=== PATIENT | female | born 1960 | race Two or more races ===

== ENCOUNTER 2016-05-31 09:56 | Day surgery (SDC) | payer OTHER ==
[2016-05-30 19:09] VITALS: BMI 25.1
--- NOTE | 2016-05-31 06:21 | HP ---
History & Physical Update - History History: No Change - Physical Physical: No Change - Assessment Assessment: No Change - Plan Plan: No Change
[~2016-05-31 09:56] MED LIST: LIDOCAINE 1%/EPI 1:100000 (50 ML MULTI DOSE VIAL) INF ONE; TETRACAINE 0.5% OPHTH SOLN 2 ML BOTTLE TP ONE; TOBRAMYCIN/DEXAMETHASONE OPHTH. OINTMENT 1 TUBE TP ONE
[2016-05-31 10:10] VITALS: TEMP 97.4
[2016-05-31] MEDS ORDERED: LIDOCAINE 1%/EPI 1:100000 (50 ML MULTI DOSE VIAL) ONE (10:36)
[2016-05-31] MEDS ORDERED: TETRACAINE 0.5% OPHTH SOLN 2 ML BOTTLE TP ONE (10:42)
[2016-05-31] MEDS ORDERED: MIDAZOLAM HCL 2 MG/2 ML SINGLE DOSE VIAL ONE (10:45)
[2016-05-31] MEDS ORDERED: LIDOCAINE 1%/EPI 1:100000 (50 ML MULTI DOSE VIAL) INF ONE (10:54)
[2016-05-31] MEDS ORDERED: TETRACAINE 0.5% OPHTH SOLN 2 ML BOTTLE ONE (10:56)
[2016-05-31] MEDS ORDERED: TOBRAMYCIN/DEXAMETHASONE OPHTH. OINTMENT 1 TUBE TP ONE (11:09)
[2016-05-31] MEDS ORDERED: ACETAMINOPHEN 325 MG TABLET (FP) ONE (12:32)
[2016-05-31] MEDS ORDERED: ACETAMINOPHEN 325 MG TABLET (FP) PO PRN (12:41)
[2016-05-31 12:59] VITALS: BP 112/64; PULSE 84
--- NOTE | 2016-06-01 08:23 | OP ---
DATE OF OPERATION: 05/31/2016 SURGEON: Arsenio Montez MD PREOPERATIVE DIAGNOSIS: Pterygium, right eye. OPERATION: Pterygium excision with conjunctival autograft, right eye. POSTOPERATIVE DIAGNOSIS: Pterygium, right eye. ANESTHESIA: Topical. COMPLICATIONS: None. BLOOD LOSS: None. SPECIMEN: None. BRIEF HISTORY: The patient is a 55-year-old woman with a past medical history of diabetes who presented with a pterygium in the right eye that was causing her significant discomfort despite medical treatment. After the risks, benefits, and alternatives to pterygium excision were discussed with the patient including the risk of recurrence, the patient consented to surgery. DESCRIPTION OF PROCEDURE: The patient was brought to the operating room and prepped and draped in the usual sterile fashion. An eyelid speculum was placed in the right eye. Lidocaine 1% with epinephrine was injected under the pterygium and superotemporally from where the conjunctival autograft would be removed. Pterygium was peeled off the cornea and excised at the base with Rashard scissors. Sclera then was cauterized, and the cornea was polished with a khoa yan. Appropriately sized conjunctival autograft was removed from the superotemporal conjunctiva and adhered to the scleral bed using Tisseel sealant. The eyelid speculum was then removed from the eye, and TobraDex ointment and a patch were placed over the right eye. The patient was transferred to the recovery room in stable condition and will follow up tomorrow. ARSENIO MONTEZ M.D. [id number] MTDD
--- NOTE | 2016-06-01 15:08 | PATH ---
Surgical Pathology Report Patient Name: MARGARITA GTZ [facility]. Rec. #: [id number] /Age/Gender: 1960 (Age: 55) / F Account: [id number] Location: [facility] SURGICAL Taken: 05/31/2016 Received: 05/31/2016 Reported: 06/01/2016 Physicians: Sung Felder M.D. Specimen(s) Received PTERYGIUM Clinical History Pterygium right eye Final Diagnosis CONJUNCTIVA, RIGHT EYE, PTERIGIUM, EXCISION: CONJUNCTIVA WITH FOCAL ELASTIC DEGENERATION, FIBROSIS AND NEOVASCULARIZATION CONSISTENT WITH PTERIGIUM. Electronically Signed Michael Hendricks M.D. Gross Description Received in formalin, labeled "pterygium" is a mackey, irregular portion of soft tissue measuring 0.2 cm in greatest dimension. The specimen is submitted in toto in one cassette. /05/31/201605/31/2016
== END 2016-05-31 14:14 | disposition home or self-care (01) ==
LOC: JASU-SURG 09:56
PROVIDERS: ATTEND Ophthalmology
PROC: 08U007Z Supplement of Right Eye with Autologous Tissue Substitute, Open Approach (ICD-10-PCS; principal; 2016-05-31 11:00)
DX: H11.001 Unspecified pterygium of right eye (principal)
CPT/HCPCS: 88304-TC

== ENCOUNTER 2020-12-15 20:04 | Observation (INO) | payer OTHER ==
[2020-12-15 20:12] VITALS: BMI 23.0
[2020-12-15] MEDS ORDERED: ASPIRIN 325 MG TABLET PO ONE (21:16)
[2020-12-15 21:26] LABS: CHLORIDE 104 mmol/L (98-107); SODIUM 137 mmol/L (136-145)
[2020-12-15 21:29] LABS: CALCIUM 8.9 mg/dL (8.5-10.1); INR 0.91 (0.83-1.09); PROTHROMBIN TIME (PATIENT) 11.2 SEC (9.7-13.0)
[2020-12-15 21:29] LABS: EPI CELLS 2 /uL (0-25.1); HYALINE CASTS 0 /uL (0-3.1); PH,URINE 6.5 (5.0-8.0); URINE APPEARANCE CLEAR; URINE BACTERIA 28 /uL (0-1359); URINE BILIRUBIN NEGATIVE (NEGATIVE); URINE COLOR YELLOW; URINE GLUCOSE (UA) NEGATIVE (NEGATIVE); URINE KETONE NEGATIVE (NEGATIVE); URINE LEUK ESTERASE TRACE (NEGATIVE); URINE NITRITE NEGATIVE (NEGATIVE); URINE PROTEIN 1+ (NEGATIVE); URINE RBC 126 /uL (0-23.9); URINE UROBILINOGEN 0.2 mg/dL (0.2-1.0); URINE WBC 15 /uL (0-25.8)
[2020-12-15 21:30] LABS: ALBUMIN 3.8 g/dl (3.4-5.0); ANION GAP 5 MMOL/L (8-16); CO2 28 mmol/L (21-32); GLUCOSE,RANDOM 191 mg/dL (74-106)
[2020-12-15 21:31] LABS: BASO % 1.2 % (0-2.0); HEMATOCRIT 37.7 % (32.4-45.2); HEMOGLOBIN 12.6 GM/dL (10.7-15.3); LYMPH % 36.2 % (8-40); MCH 29.9 pg (25.7-33.7); MCHC 33.4 g/dl (32.0-36.0); MEAN CELL VOLUME 89.4 fl (80-96); MEAN PLT VOLUME 7.3 fl (7.5-11.1); MONO % 7.4 % (3.8-10.2); NEUT % 47.2 % (42.8-82.8); PLATELET COUNT 322 10^3/uL (134-434); RBC 4.22 M/mm3 (3.60-5.2); RDW 13.4 % (11.6-15.6)
[2020-12-15 21:32] LABS: ACTIVATED PTT 29.7 SECONDS (25.2-36.5)
[2020-12-15 21:33] LABS: CHOLESTEROL 151 mg/dL (50-200); CREATININE 1.7 mg/dL (0.55-1.3); SGOT/AST 19 U/L (15-37); SGPT/ALT 18 U/L (13-61)
[2020-12-15 21:34] LABS: BILIRUBIN,TOTAL 0.3 mg/dL (0.2-1); LDL CHOLESTEROL (ONLY SJRH) 72 mg/dL (5-100)
[2020-12-15 21:35] LABS: TOT PROT 7.7 g/dl (6.4-8.2); TRIGLYCERIDES 104 mg/dL (0-150)
[2020-12-15 21:36] LABS: ALK PHOS 115 U/L (45-117); HDL CHOLESTEROL 67 mg/dL (40-60)
[2020-12-15] MEDS ORDERED: ASPIRIN 81 MG CHEWABLE TABLETS ONE (21:40)
[2020-12-16] MEDS ORDERED: HEPARIN NA (PORCINE) 5,000 UNITS/ML 1ML VIAL ONE (05:39)
[2020-12-16] MEDS: HEPARIN NA (PORCINE) 5,000 UNITS/ML 1ML VIAL SQ SCH ×2 (05:50→14:51)
[2020-12-16 06:37] LABS: BASO % 1.4 % (0-2.0); EOS % 9.8 % (0-4.5); HEMATOCRIT 35.8 % (32.4-45.2); HEMOGLOBIN 11.9 GM/dL (10.7-15.3); LYMPH % 43.2 % (8-40); MCH 29.9 pg (25.7-33.7); MCHC 33.4 g/dl (32.0-36.0); MEAN CELL VOLUME 89.6 fl (80-96); MEAN PLT VOLUME 7.4 fl (7.5-11.1); MONO % 8.8 % (3.8-10.2); NEUT % 36.8 % (42.8-82.8); PLATELET COUNT 297 10^3/uL (134-434); RBC 3.99 M/mm3 (3.60-5.2); RDW 13.5 % (11.6-15.6); WHITE BLOOD COUNT 4.3 K/mm3 (4.0-10.0)
[2020-12-16 06:42] LABS: CALCIUM 8.9 mg/dL (8.5-10.1)
[2020-12-16 06:43] LABS: ALBUMIN 3.3 g/dl (3.4-5.0); BLOOD UREA NITROGEN 22.5 mg/dL (7-18); MAGNESIUM 2.1 mg/dL (1.8-2.4)
[2020-12-16 06:45] LABS: CREATININE 1.5 mg/dL (0.55-1.3)
[2020-12-16 06:46] LABS: PHOSPHOROUS 3.8 mg/dL (2.5-4.9)
[2020-12-16 06:47] LABS: BILIRUBIN,TOTAL 0.3 mg/dL (0.2-1); TOT PROT 6.8 g/dl (6.4-8.2)
[2020-12-16] MEDS ORDERED: LEVOTHYROXINE NA 50 MCG TABLET (FP) PO SCH ×2 (07:00→07:18)
[2020-12-16] MEDS: INSULIN SLIDING SCALE (NOVOLOG) 1 VIAL SQ SCH ×2 (09:52→12:34)
[2020-12-16] MEDS ORDERED: ASPIRIN COATED 81 MG TABLET.EC PO SCH (10:00)
[2020-12-16] MEDS ORDERED: SODIUM CHLORIDE 0.45% 1,000 ML IV SCH (11:30)
[2020-12-16 15:39] VITALS: BP 124/58; PULSE 76; TEMP 98.4
[2020-12-16] MEDS ORDERED: INSULIN (NOVOLOG) ASPART 100 UNITS/ML 10ML VIAL ONE (17:24)
[2020-12-16] MEDS ORDERED: ATORVASTATIN CA 40 MG TABLET (FP) PO SCH (22:00)
[2020-12-17] MEDS ORDERED: LEVOTHYROXINE NA 75 MCG TABLET (FP) PO SCH (07:00)
== END 2020-12-16 17:56 | disposition home or self-care (01) ==
LOC: JER 20:04 → UNDOADMOB 21:17 → INTOOBSV 21:17 → JERBED 21:17 → J4W 12-16 08:45 → JERBED 12-16 09:39 → J4W 12-16 09:39
PROVIDERS: ADMIT Internal Medicine; ATTEND Internal Medicine
PROC: 3E023GC Introduction of Other Therapeutic Substance into Muscle, Percutaneous Approach (ICD-10-PCS; principal; 2020-12-16)
DX: G45.9 Transient cerebral ischemic attack, unspecified (principal); R55 Syncope and collapse; E11.9 Type 2 diabetes mellitus without complications; I10 Essential (primary) hypertension; E03.9 Hypothyroidism, unspecified; R42 Dizziness and giddiness; N17.9 Acute kidney failure, unspecified; R51.9 Headache, unspecified; R20.0 Anesthesia of skin; Z29.9 Encounter for prophylactic measures, unspecified
CPT/HCPCS: 36415; 70450-TC; 70496-TC; 70498-TC; 76775-TC; 80053; 80061; 81003; 82550; 82553; 82570; 82962; 83036; 83735; 84100; 84300; 84439; 84443; 84484; 85025; 85610; 85730; 86850; 86900; 86901; 93005; 93010; 93880-TC; 96372; 97116-GP; 97161-GP; 99285-25; C9803; G0378; J1644; U0003; U0005

== ENCOUNTER 2023-12-04 02:22 | Inpatient (IN) | payer OTHER ==
[2023-12-04] MEDS ORDERED: MIDAZOLAM IN 0.9 % SOD.CHLORID 1 MG/1 ML PLAST..BAG ONE (02:40)
[2023-12-04 02:48] LABS: BASO % 1.1 % (0-2.0); EOS % 2.5 % (0-4.5); HEMATOCRIT 33.7 % (32.4-45.2); HEMOGLOBIN 10.5 GM/dL (10.7-15.3); LYMPH % 32.6 % (8-40); MCH 31.4 pg (25.7-33.7); MCHC 31.3 g/dl (32.0-36.0); MEAN CELL VOLUME 100.5 fl (80-96); MEAN PLT VOLUME 7.7 fl (7.5-11.1); MONO % 3.6 % (3.8-10.2); NEUT % 60.2 % (42.8-82.8); PLATELET COUNT 166 10^3/uL (134-434); RBC 3.35 M/mm3 (3.60-5.2); RDW 16.7 % (11.6-15.6); WHITE BLOOD COUNT 5.4 K/mm3 (4.0-10.0)
[2023-12-04 02:50] LABS: VENOUS O2 SATURATION 77.4 % (70-80); VENOUS PCO2 69.8 mmHg (38-52)
[2023-12-04 02:51] LABS: VENOUS PH 6.997 (7.310-7.410)
[2023-12-04] MEDS ORDERED: DEXTROSE 50%-WATER 25 GM/50 ML DISP.SYRIN ONE (02:51)
[2023-12-04] MEDS ORDERED: INSULIN REGULAR HUMAN 100 UNITS/ML *VIAL ONE (02:57)
[2023-12-04] MEDS: MIDAZOLAM IN 0.9 % SOD.CHLORID 100 MG/100 ML PLAST..BAG IVPB SCH (02:59)
[2023-12-04] MEDS: DEXTROSE 50%-WATER 25 GM/50 ML DISP.SYRIN IVPUSH ONE ×2 (02:59→06:10)
[2023-12-04] MEDS: INSULIN REGULAR HUMAN 100 UNITS/ML *VIAL IVPUSH ONE ×2 (02:59→06:10)
[2023-12-04 03:05] LABS: CHLORIDE 105 mmol/L (98-107); SODIUM 136 mmol/L (136-145)
[2023-12-04 03:06] LABS: CO2 17 mmol/L (21-32)
[2023-12-04 03:09] LABS: ANION GAP 14 mmol/L (4-13); POTASSIUM 8.6 mmol/L (3.5-5.1)
[2023-12-04] MEDS ORDERED: ROCURONIUM BROMIDE 50 MG/5 ML VIAL ONE (03:16)
[2023-12-04] MEDS: ROCURONIUM BROMIDE 50 MG/5 ML VIAL IVPUSH ONE (03:29)
[2023-12-04] MEDS ORDERED: CALCIUM GLUC IN NACL, ISO-OSM 1 GM/50 ML BAG IVPB ONE (03:30)
[2023-12-04] MEDS ORDERED: SODIUM ZIRCONIUM CYCLOSILICATE (LOKELMA) 10 GM PACKET ONE (03:31)
[2023-12-04] MEDS ORDERED: FUROSEMIDE 40 MG/4 ML INJECTABLE VIAL ONE (03:47)
[2023-12-04 04:03] LABS: HIV INTERPRETATION NEGATIVE (NEGATIVE)
[2023-12-04] MEDS: CALCIUM CHLORIDE 10% 1 GM/10 ML *VIAL IVPB ONE (04:05)
[2023-12-04] MEDS: FUROSEMIDE 40 MG/4 ML INJECTABLE VIAL IVPUSH ONE (04:06)
[2023-12-04] MEDS: ALBUTEROL SO4 0.083% IH SOL 2.5 MG/3 ML VIAL.NEB. NEB SCH (04:06)
[2023-12-04] MEDS ORDERED: PIPERACILLIN/TAZOB 4.5 GM 4.5 GM/100 ML BAG IVPB ONE (04:07)
[2023-12-04] MEDS: PIPERACILLIN/TAZOB 4.5 GM 4.5 GM in DEXTROSE 5%-WATER 100 ML IVPB ONE (04:11)
[2023-12-04] MEDS ORDERED: FENTANYL NS IVPB 500 MCG/100 ML BAG IVPB ONE (04:12)
[2023-12-04] MEDS: FENTANYL NS IVPB 500 MCG/100 ML BAG IVPB SCH ×2 (04:33→20:45)
[2023-12-04] MEDS ORDERED: VANCOMYCIN 1 GRAM (PRE-DOCKED) 1,000 MG/250 ML BAG IVPB ONE (04:51)
[2023-12-04 05:01] LABS: ALBUMIN 3.3 g/dl (3.4-5.0); ALK PHOS 104 U/L (45-117); ANION GAP 16 mmol/L (4-13); BILIRUBIN,TOTAL 0.6 mg/dL (0.2-1); BLOOD UREA NITROGEN 40.7 mg/dL (7-18); CALCIUM 10.1 mg/dL (8.5-10.1); CHLORIDE 103 mmol/L (98-107); CO2 17 mmol/L (21-32); CREATININE 10.1 mg/dL (0.55-1.3); GLUCOSE,RANDOM 246 mg/dL (74-106); MAGNESIUM 2.8 mg/dL (1.8-2.4); POTASSIUM 6.3 mmol/L (3.5-5.1); SGOT/AST 98 U/L (15-37); SGPT/ALT 62 U/L (13-61); SODIUM 135 mmol/L (136-145); TOT PROT 6.4 g/dl (6.4-8.2)
[2023-12-04 05:02] LABS: LACTIC ACID 7.5 mmol/L (0.4-2.0); N-TERMINAL BNP > 35000.0 pg/ml (5-125)
[2023-12-04 05:21] LABS: CHLORIDE 106 mmol/L (98-107); SODIUM 134 mmol/L (136-145)
[2023-12-04 05:23] LABS: BLOOD UREA NITROGEN 43.3 mg/dL (7-18); CALCIUM 9.5 mg/dL (8.5-10.1); CO2 18 mmol/L (21-32); GLUCOSE,RANDOM 208 mg/dL (74-106)
[2023-12-04 05:33] LABS: ANION GAP 10 mmol/L (4-13); CREATININE 9.8 mg/dL (0.55-1.3); POTASSIUM 8.3 mmol/L (3.5-5.1)
[2023-12-04] MEDS: VANCOMYCIN 1,000 MG in DEXTROSE 5%-WATER - 250 ML IVPB ONE (05:35)
[2023-12-04] MEDS: CALCIUM GLUC IN NACL, ISO-OSM 1 GM/50 ML BAG IVPB ONE (06:10)
[2023-12-04 06:48] LABS: ARTERIAL BLD GAS O2 SATURATION 97.5 % (95-98); ARTERIAL BLOOD GAS BASE EXCESS -6.7 mmol/L (-2-2); ARTERIAL BLOOD GAS PO2 119.6 mmHg (80-100); ARTERIAL BLOOD GAS pH 7.211 (7.350-7.450)
[2023-12-04 06:49] LABS: ALLENS TEST POSITIVE; VENT MODE A/C; VENT RATE 20
[2023-12-04] MEDS: SODIUM BICARBONATE 8.4% 50 MEQ/50 ML DISP.SYRIN IVPUSH ONE (07:32)
[2023-12-04] MEDS: NICARDIPINE 25 MG in DEXTROSE 5%-WATER - 240 ML IVPB SCH (07:41)
[2023-12-04 08:10] LABS: CALCIUM 9.4 mg/dL (8.5-10.1); CHLORIDE 106 mmol/L (98-107); SODIUM 137 mmol/L (136-145)
[2023-12-04 08:12] LABS: BLOOD UREA NITROGEN 45.5 mg/dL (7-18); CO2 20 mmol/L (21-32); GLUCOSE,RANDOM 229 mg/dL (74-106)
[2023-12-04 08:32] LABS: ANION GAP 11 mmol/L (4-13); CREATININE 9.9 mg/dL (0.55-1.3); POTASSIUM 6.5 mmol/L (3.5-5.1)
[2023-12-04] MEDS: SODIUM ZIRCONIUM CYCLOSILICATE (LOKELMA) 5 GM PACKET PO SCH (09:02)
[2023-12-04] MEDS: HEPARIN NA (PORCINE) 5,000 UNITS/ML 1ML VIAL SQ SCH (09:02)
[2023-12-04] MEDS: PANTOPRAZOLE SOD 40 MG SUSPENSION PACKET PO SCH (09:02)
[2023-12-04] MEDS: LEVOTHYROXINE SODIUM 100 MCG 5 ML VIAL IVPUSH SCH (09:03)
[2023-12-04] MEDS ORDERED: SODIUM ZIRCONIUM CYCLOSILICATE (LOKELMA) 5 GM PACKET PO SCH (10:00)
[2023-12-04] MEDS ORDERED: SODIUM CHLORIDE 250 ML IV PRN (10:50)
[2023-12-04] MEDS: PIPERACILLIN/TAZOB 2.25 GM 2.25 GM in DEXTROSE 5%-WATER - 50 ML IVPB SCH (12:36)
[2023-12-04] MEDS: PROPOFOL 1,000,000 MCG/100 ML VIAL IVPB SCH (15:29)
[2023-12-04] MEDS ORDERED: LABETALOL HCL 5 MG/1 ML (100MG/20 ML VIAL) IVPUSH PRN (16:06)
[2023-12-04] MEDS ORDERED: LABETALOL HCL 5 MG/1 ML (100MG/20 ML VIAL) ONE (16:11)
[2023-12-04] MEDS: METOPROLOL TARTRATE 5 MG/5 ML VIAL IVPUSH PRN (16:15)
[2023-12-04] MEDS: ATORVASTATIN CA 80 MG TABLET (FP) NGT SCH (21:52)
[2023-12-05] MEDS: levETIRAcetam 500 MG/5 ML INJECTION VIAL IVPB SCH (01:04)
[2023-12-05 08:46] LABS: HEMATOCRIT 32.1 % (32.4-45.2); HEMOGLOBIN 10.5 GM/dL (10.7-15.3); MCH 30.7 pg (25.7-33.7); MCHC 32.6 g/dl (32.0-36.0); MEAN CELL VOLUME 94.3 fl (80-96); MEAN PLT VOLUME 8.2 fl (7.5-11.1); PLATELET COUNT 157 10^3/uL (134-434); RDW 15.8 % (11.6-15.6); WHITE BLOOD COUNT 12.3 K/mm3 (4.0-10.0)
[2023-12-05 08:56] LABS: ARTERIAL BLOOD GAS BASE EXCESS 3.1 mmol/L (-2-2); ARTERIAL BLOOD GAS PO2 145.5 mmHg (80-100); ARTERIAL BLOOD GAS pH 7.486 (7.350-7.450)
[2023-12-05 08:58] LABS: ALLENS TEST POSITIVE
[2023-12-05 08:59] LABS: PT'S TEMP 93.8; VENT MODE AC; VENT RATE 20
[2023-12-05 09:13] LABS: POTASSIUM 4.5 mmol/L (3.5-5.1)
[2023-12-05 09:15] LABS: ALBUMIN 2.8 g/dl (3.4-5.0); CALCIUM 8.6 mg/dL (8.5-10.1)
[2023-12-05 09:16] LABS: BLOOD UREA NITROGEN 24.6 mg/dL (7-18)
[2023-12-05 09:18] LABS: CREATININE 5.3 mg/dL (0.55-1.3); PHOSPHOROUS 4.6 mg/dL (2.5-4.9)
[2023-12-05 09:20] LABS: BILIRUBIN,TOTAL 1.4 mg/dL (0.2-1); TOT PROT 5.6 g/dl (6.4-8.2)
[2023-12-05 09:24] LABS: ANISOCYTOSIS 0; MACROCYTOSIS 0
[2023-12-05] MEDS ORDERED: SODIUM CHLORIDE 250 ML IV PRN (09:49)
[2023-12-05] MEDS: ACETAMINOPHEN 1000 MG/100 ML BAG IVPB ONE (21:00)
[2023-12-06 06:53] LABS: POTASSIUM 4.9 mmol/L (3.5-5.1)
[2023-12-06 06:58] LABS: BLOOD UREA NITROGEN 48.3 mg/dL (7-18); MAGNESIUM 2.1 mg/dL (1.8-2.4)
[2023-12-06 07:00] LABS: ALBUMIN 2.8 g/dl (3.4-5.0)
[2023-12-06 07:01] LABS: PHOSPHOROUS 6.4 mg/dL (2.5-4.9)
[2023-12-06 07:02] LABS: TOT PROT 5.7 g/dl (6.4-8.2)
[2023-12-06 07:03] LABS: CREATININE 7.1 mg/dL (0.55-1.3)
[2023-12-06 07:06] LABS: BILIRUBIN,TOTAL 0.9 mg/dL (0.2-1)
[2023-12-06 07:14] LABS: BASO % 0.2 % (0-2.0); EOS % 0.9 % (0-4.5); HEMATOCRIT 33.4 % (32.4-45.2); HEMOGLOBIN 10.9 GM/dL (10.7-15.3); LYMPH % 7.2 % (8-40); MCH 30.9 pg (25.7-33.7); MCHC 32.7 g/dl (32.0-36.0); MEAN CELL VOLUME 94.5 fl (80-96); MEAN PLT VOLUME 8.1 fl (7.5-11.1); MONO % 2.8 % (3.8-10.2); NEUT % 88.9 % (42.8-82.8); PLATELET COUNT 174 10^3/uL (134-434); RBC 3.54 M/mm3 (3.60-5.2); RDW 16.7 % (11.6-15.6); WHITE BLOOD COUNT 12.5 K/mm3 (4.0-10.0)
[2023-12-06] MEDS: PIPERACILLIN/TAZOB 2.25 GM 2.25 GM in DEXTROSE 5%-WATER - 50 ML IVPB SCH (10:41)
[2023-12-06] MEDS: PANTOPRAZOLE SODIUM 40 MG VIAL IVPUSH SCH (13:30)
[2023-12-06] MEDS: LABETALOL HCL 200 MG TABLET (FP) GT SCH (13:30)
[2023-12-06] MEDS: SODIUM CHLORIDE 0.9% 500 ML INFUS.BAG IV ONE (15:52)
[2023-12-06] MEDS: NICARDIPINE 25 MG in DEXTROSE 5%-WATER - 240 ML IVPB SCH (15:52)
[2023-12-06] MEDS: ACETAMINOPHEN 1000 MG/100 ML BAG IVPB PRN (19:34)
[2023-12-06] MEDS: hydrALAZINE HCL 20 MG/ML VIAL IVPUSH ONE (22:09)
[2023-12-06] MEDS: hydrALAZINE HCL 25 MG TABLET (FP) PO SCH (22:48)
[2023-12-07] MEDS: hydrALAZINE HCL 20 MG/ML VIAL IVPUSH PRN (04:29)
[2023-12-07 06:51] LABS: BASO % 0.2 % (0-2.0); EOS % 0.4 % (0-4.5); HEMATOCRIT 33.9 % (32.4-45.2); HEMOGLOBIN 10.9 GM/dL (10.7-15.3); LYMPH % 7.1 % (8-40); MCH 30.5 pg (25.7-33.7); MCHC 32.2 g/dl (32.0-36.0); MEAN CELL VOLUME 94.7 fl (80-96); MEAN PLT VOLUME 8.1 fl (7.5-11.1); MONO % 5.2 % (3.8-10.2); NEUT % 87.1 % (42.8-82.8); PLATELET COUNT 155 10^3/uL (134-434); RBC 3.58 M/mm3 (3.60-5.2); WHITE BLOOD COUNT 12.9 K/mm3 (4.0-10.0)
[2023-12-07 07:14] LABS: POTASSIUM 3.8 mmol/L (3.5-5.1)
[2023-12-07 07:24] LABS: CALCIUM 7.9 mg/dL (8.5-10.1)
[2023-12-07 07:25] LABS: ALBUMIN 2.8 g/dl (3.4-5.0); BLOOD UREA NITROGEN 47.8 mg/dL (7-18); MAGNESIUM 2.2 mg/dL (1.8-2.4)
[2023-12-07 07:28] LABS: BILIRUBIN,TOTAL 1.2 mg/dL (0.2-1); PHOSPHOROUS 4.5 mg/dL (2.5-4.9); TOT PROT 5.8 g/dl (6.4-8.2)
[2023-12-07] MEDS: hydrALAZINE HCL 20 MG/ML VIAL IVPUSH ONE (07:51)
[2023-12-07] MEDS: NICARDIPINE 25 MG in DEXTROSE 5%-WATER - 240 ML IVPB SCH (09:46)
[2023-12-07] MEDS: LABETALOL HCL 100 MG TABLET (FP) PO SCH (13:14)
[2023-12-07 15:45] VITALS: BMI 21.6
[2023-12-07] MEDS ORDERED: SODIUM CHLORIDE 250 ML IV PRN (16:55)
[2023-12-08 07:09] LABS: BASO % 0.1 % (0-2.0); EOS % 0.1 % (0-4.5); HEMOGLOBIN 10.2 GM/dL (10.7-15.3); LYMPH % 9.1 % (8-40); MCH 31.2 pg (25.7-33.7); MCHC 32.8 g/dl (32.0-36.0); MEAN PLT VOLUME 8.7 fl (7.5-11.1); MONO % 6.8 % (3.8-10.2); NEUT % 83.9 % (42.8-82.8); PLATELET COUNT 153 10^3/uL (134-434); RBC 3.26 M/mm3 (3.60-5.2); RDW 16.3 % (11.6-15.6); WHITE BLOOD COUNT 9.9 K/mm3 (4.0-10.0)
[2023-12-08 07:28] LABS: CHLORIDE 97 mmol/L (98-107); POTASSIUM 4.6 mmol/L (3.5-5.1); SODIUM 133 mmol/L (136-145)
[2023-12-08 07:34] LABS: CALCIUM 7.7 mg/dL (8.5-10.1)
[2023-12-08 07:35] LABS: ALBUMIN 2.6 g/dl (3.4-5.0); ANION GAP 8 mmol/L (4-13); CO2 29 mmol/L (21-32); GLUCOSE,RANDOM 129 mg/dL (74-106); MAGNESIUM 2.4 mg/dL (1.8-2.4)
[2023-12-08 07:37] LABS: PHOSPHOROUS 6.1 mg/dL (2.5-4.9)
[2023-12-08 07:38] LABS: SGOT/AST 107 U/L (15-37); SGPT/ALT 48 U/L (13-61)
[2023-12-08 07:39] LABS: BILIRUBIN,TOTAL 0.9 mg/dL (0.2-1); BLOOD UREA NITROGEN 77.8 mg/dL (7-18); CREATININE 7.9 mg/dL (0.55-1.3); TOT PROT 5.5 g/dl (6.4-8.2)
[2023-12-08 07:40] LABS: ALK PHOS 179 U/L (45-117)
[2023-12-08] MEDS: LABETALOL HCL 200 MG TABLET (FP) PO SCH (14:55)
[2023-12-09 06:18] LABS: BASO % 0.1 % (0-2.0); EOS % 0.4 % (0-4.5); HEMATOCRIT 30.1 % (32.4-45.2); HEMOGLOBIN 9.9 GM/dL (10.7-15.3); MCH 31.4 pg (25.7-33.7); MCHC 32.9 g/dl (32.0-36.0); MEAN CELL VOLUME 95.2 fl (80-96); MEAN PLT VOLUME 8.2 fl (7.5-11.1); MONO % 6.3 % (3.8-10.2); NEUT % 87.2 % (42.8-82.8); PLATELET COUNT 134 10^3/uL (134-434); RBC 3.16 M/mm3 (3.60-5.2); RDW 17.3 % (11.6-15.6); WHITE BLOOD COUNT 9.6 K/mm3 (4.0-10.0)
[2023-12-09 06:30] LABS: POTASSIUM 3.5 mmol/L (3.5-5.1)
[2023-12-09 06:33] LABS: CALCIUM 7.9 mg/dL (8.5-10.1)
[2023-12-09 06:34] LABS: ALBUMIN 2.4 g/dl (3.4-5.0); BLOOD UREA NITROGEN 47.3 mg/dL (7-18); MAGNESIUM 2.2 mg/dL (1.8-2.4)
[2023-12-09 06:37] LABS: CREATININE 5.1 mg/dL (0.55-1.3); PHOSPHOROUS 5.4 mg/dL (2.5-4.9)
[2023-12-09 06:38] LABS: BILIRUBIN,TOTAL 0.9 mg/dL (0.2-1); TOT PROT 5.4 g/dl (6.4-8.2)
[2023-12-09] MEDS: LABETALOL HCL 200 MG TABLET (FP) NGT SCH (14:30)
[2023-12-09] MEDS: hydrALAZINE HCL 25 MG TABLET (FP) NGT SCH (16:44)
[2023-12-10 07:32] LABS: HEMATOCRIT 29.8 % (32.4-45.2); HEMOGLOBIN 9.7 GM/dL (10.7-15.3); MCH 30.9 pg (25.7-33.7); MCHC 32.6 g/dl (32.0-36.0); MEAN CELL VOLUME 94.6 fl (80-96); PLATELET COUNT 132 10^3/uL (134-434); RBC 3.15 M/mm3 (3.60-5.2); WHITE BLOOD COUNT 11.6 K/mm3 (4.0-10.0)
[2023-12-10 07:50] LABS: POTASSIUM 3.6 mmol/L (3.5-5.1)
[2023-12-10 07:55] LABS: CALCIUM 7.8 mg/dL (8.5-10.1)
[2023-12-10 07:56] LABS: ALBUMIN 2.4 g/dl (3.4-5.0); BLOOD UREA NITROGEN 85.5 mg/dL (7-18); MAGNESIUM 2.4 mg/dL (1.8-2.4)
[2023-12-10 07:59] LABS: BILIRUBIN,TOTAL 0.9 mg/dL (0.2-1); CREATININE 6.8 mg/dL (0.55-1.3); TOT PROT 5.3 g/dl (6.4-8.2)
[2023-12-10 09:58] LABS: ANISOCYTOSIS 0; HELMET CELLS 0; HOWELL-JOLLY BODIES 0; MACROCYTOSIS 0; OVALOCYTE 0; ROULEAU 0; SICKELED CELLS 0; TARGET CELLS 0; TEAR DROP CELLS 0; TOXIC GRANULATION 0
[2023-12-10] MEDS: SODIUM ZIRCONIUM CYCLOSILICATE (LOKELMA) 5 GM PACKET NGT SCH (10:05)
[2023-12-10] MEDS: INSULIN ASPART SLIDING SCALE (NOVOLOG) 1 VIAL SQ SCH (11:17)
[2023-12-10] MEDS ORDERED: INSULIN ASPART SLIDING SCALE (NOVOLOG) 1 VIAL SQ ONE (17:52)
[2023-12-11] MEDS ORDERED: SODIUM CHLORIDE 250 ML IV PRN (00:26)
[2023-12-11] MEDS: LABETALOL HCL 5 MG/1 ML (100MG/20 ML VIAL) IVPUSH PRN (04:52)
[2023-12-11 06:40] LABS: EOS % 0.3 % (0-4.5); HEMATOCRIT 29.5 % (32.4-45.2); HEMOGLOBIN 9.5 GM/dL (10.7-15.3); LYMPH % 5.4 % (8-40); MCH 30.7 pg (25.7-33.7); MCHC 32.1 g/dl (32.0-36.0); MEAN CELL VOLUME 95.8 fl (80-96); MONO % 6.1 % (3.8-10.2); NEUT % 88.2 % (42.8-82.8); PLATELET COUNT 156 10^3/uL (134-434); RBC 3.09 M/mm3 (3.60-5.2); RDW 17.2 % (11.6-15.6); WHITE BLOOD COUNT 11.9 K/mm3 (4.0-10.0)
[2023-12-11 06:41] LABS: CHLORIDE 100 mmol/L (98-107); POTASSIUM 3.3 mmol/L (3.5-5.1); SODIUM 140 mmol/L (136-145)
[2023-12-11 06:48] LABS: CALCIUM 7.8 mg/dL (8.5-10.1)
[2023-12-11 06:49] LABS: ALBUMIN 2.2 g/dl (3.4-5.0); ANION GAP 11 mmol/L (4-13); CO2 29 mmol/L (21-32); GLUCOSE,RANDOM 206 mg/dL (74-106); MAGNESIUM 2.7 mg/dL (1.8-2.4)
[2023-12-11 06:52] LABS: SGOT/AST 123 U/L (15-37); SGPT/ALT 82 U/L (13-61)
[2023-12-11 06:53] LABS: BILIRUBIN,TOTAL 0.7 mg/dL (0.2-1); TOT PROT 5.2 g/dl (6.4-8.2)
[2023-12-11 06:55] LABS: ALK PHOS 226 U/L (45-117)
[2023-12-11] MEDS: POTASSIUM CHLORIDE ORAL LIQUID 20 MEQ/15 ML PO ONE (07:08)
[2023-12-11 07:48] LABS: BLOOD UREA NITROGEN 105.7 mg/dL (7-18); CREATININE 8.5 mg/dL (0.55-1.3)
[2023-12-11 10:24] LABS: ARTERIAL BLD GAS O2 SATURATION 97.5 % (95-98); ARTERIAL BLOOD GAS BASE EXCESS 0.9 mmol/L (-2-2); ARTERIAL BLOOD GAS PO2 100.7 mmHg (80-100); ARTERIAL BLOOD GAS pH 7.384 (7.350-7.450)
[2023-12-11 10:37] LABS: ALLENS TEST POSITIVE; VENT MODE AC
[2023-12-11 10:38] LABS: VENT RATE 12
[2023-12-11] MEDS: POTASSIUM CHLORIDE TABS 20 MEQ TABLET.ER (FP) PO ONE (17:01)
[2023-12-11] MEDS: VANCOMYCIN ORAL SOLUTION 125 MG/2.5 ML PO SCH (17:49)
[2023-12-11] MEDS ORDERED: INSULIN ASPART SLIDING SCALE (NOVOLOG) 1 VIAL SQ ONE (18:07)
[2023-12-12 06:48] LABS: HEMATOCRIT 29.8 % (32.4-45.2); HEMOGLOBIN 9.5 GM/dL (10.7-15.3); MCH 30.5 pg (25.7-33.7); MCHC 31.8 g/dl (32.0-36.0); MEAN CELL VOLUME 95.9 fl (80-96); MEAN PLT VOLUME 9.1 fl (7.5-11.1); PLATELET COUNT 202 10^3/uL (134-434); RBC 3.11 M/mm3 (3.60-5.2); WHITE BLOOD COUNT 12.3 K/mm3 (4.0-10.0)
[2023-12-12 06:51] LABS: BASO % 0.1 % (0-2.0); EOS % 0.3 % (0-4.5); HEMATOCRIT 29.2 % (32.4-45.2); HEMOGLOBIN 9.4 GM/dL (10.7-15.3); MCH 30.8 pg (25.7-33.7); MCHC 32.3 g/dl (32.0-36.0); MEAN CELL VOLUME 95.3 fl (80-96); MEAN PLT VOLUME 8.9 fl (7.5-11.1); MONO % 5.1 % (3.8-10.2); NEUT % 89.5 % (42.8-82.8); PLATELET COUNT 204 10^3/uL (134-434); RBC 3.07 M/mm3 (3.60-5.2); RDW 16.8 % (11.6-15.6); WHITE BLOOD COUNT 12.5 K/mm3 (4.0-10.0)
[2023-12-12 07:11] LABS: POTASSIUM 4.4 mmol/L (3.5-5.1)
[2023-12-12 07:16] LABS: CALCIUM 8.1 mg/dL (8.5-10.1)
[2023-12-12 07:17] LABS: ALBUMIN 2.3 g/dl (3.4-5.0); MAGNESIUM 2.3 mg/dL (1.8-2.4)
[2023-12-12 07:20] LABS: CREATININE 5.3 mg/dL (0.55-1.3)
[2023-12-12 07:21] LABS: BILIRUBIN,TOTAL 0.7 mg/dL (0.2-1); TOT PROT 5.6 g/dl (6.4-8.2)
[2023-12-12 07:59] LABS: BLOOD UREA NITROGEN 65.1 mg/dL (7-18)
[2023-12-12] MEDS ORDERED: SODIUM CHLORIDE 250 ML IV PRN (17:30)
[2023-12-13 06:43] LABS: HEMOGLOBIN 9.4 GM/dL (10.7-15.3); MCH 30.2 pg (25.7-33.7); MCHC 31.5 g/dl (32.0-36.0); MEAN CELL VOLUME 95.8 fl (80-96); MEAN PLT VOLUME 8.8 fl (7.5-11.1); PLATELET COUNT 243 10^3/uL (134-434); RBC 3.13 M/mm3 (3.60-5.2); RDW 17.1 % (11.6-15.6); WHITE BLOOD COUNT 12.6 K/mm3 (4.0-10.0)
[2023-12-13 07:00] LABS: POTASSIUM 4.9 mmol/L (3.5-5.1)
[2023-12-13 07:07] LABS: ALBUMIN 2.3 g/dl (3.4-5.0)
[2023-12-13 07:08] LABS: CALCIUM 8.2 mg/dL (8.5-10.1)
[2023-12-13 07:09] LABS: MAGNESIUM 2.6 mg/dL (1.8-2.4)
[2023-12-13 07:10] LABS: CREATININE 7.2 mg/dL (0.55-1.3)
[2023-12-13 07:11] LABS: TOT PROT 5.5 g/dl (6.4-8.2)
[2023-12-13 07:12] LABS: PHOSPHOROUS 8.1 mg/dL (2.5-4.9)
[2023-12-13 07:38] LABS: BILIRUBIN,TOTAL 0.7 mg/dL (0.2-1); BLOOD UREA NITROGEN 95.8 mg/dL (7-18)
[2023-12-13] MEDS: hydrALAZINE HCL 20 MG/ML VIAL IVPUSH ONE (13:54)
[2023-12-13] MEDS: LABETALOL HCL 200 MG TABLET (FP) PO SCH (16:05)
[2023-12-14 08:28] LABS: HEMATOCRIT 28.4 % (32.4-45.2); HEMOGLOBIN 9.3 GM/dL (10.7-15.3); MCH 30.8 pg (25.7-33.7); MCHC 32.7 g/dl (32.0-36.0); MEAN CELL VOLUME 94.1 fl (80-96); MEAN PLT VOLUME 8.9 fl (7.5-11.1); PLATELET COUNT 250 10^3/uL (134-434); RBC 3.02 M/mm3 (3.60-5.2); RDW 16.3 % (11.6-15.6); WHITE BLOOD COUNT 7.5 K/mm3 (4.0-10.0)
[2023-12-14 08:49] LABS: POTASSIUM 5.1 mmol/L (3.5-5.1)
[2023-12-14 08:55] LABS: CALCIUM 8.4 mg/dL (8.5-10.1)
[2023-12-14 08:56] LABS: ALBUMIN 2.2 g/dl (3.4-5.0); MAGNESIUM 2.5 mg/dL (1.8-2.4)
[2023-12-14 08:57] LABS: BLOOD UREA NITROGEN 67.8 mg/dL (7-18)
[2023-12-14 08:59] LABS: BILIRUBIN,TOTAL 0.8 mg/dL (0.2-1); CREATININE 4.7 mg/dL (0.55-1.3); PHOSPHOROUS 7.5 mg/dL (2.5-4.9)
[2023-12-14 09:00] LABS: TOT PROT 5.3 g/dl (6.4-8.2)
[2023-12-14 10:00] LABS: ANISOCYTOSIS 2+; MACROCYTOSIS 0
[2023-12-14] MEDS ORDERED: SODIUM CHLORIDE 250 ML IV PRN (15:25)
[2023-12-15 07:59] LABS: CHLORIDE 98 mmol/L (98-107); POTASSIUM 4.8 mmol/L (3.5-5.1); SODIUM 137 mmol/L (136-145)
[2023-12-15 08:00] LABS: ALBUMIN 2.1 g/dl (3.4-5.0); ANION GAP 10 mmol/L (4-13); CALCIUM 7.8 mg/dL (8.5-10.1); CO2 29 mmol/L (21-32)
[2023-12-15 08:01] LABS: BLOOD UREA NITROGEN 91.1 mg/dL (7-18); GLUCOSE,RANDOM 192 mg/dL (74-106); MAGNESIUM 2.5 mg/dL (1.8-2.4)
[2023-12-15 08:03] LABS: HEMATOCRIT 26.6 % (32.4-45.2); HEMOGLOBIN 8.8 GM/dL (10.7-15.3); MCH 31.1 pg (25.7-33.7); MCHC 33.1 g/dl (32.0-36.0); MEAN CELL VOLUME 93.9 fl (80-96); PLATELET COUNT 283 10^3/uL (134-434); RBC 2.83 M/mm3 (3.60-5.2); RDW 16.2 % (11.6-15.6); WHITE BLOOD COUNT 8.8 K/mm3 (4.0-10.0)
[2023-12-15 08:04] LABS: SGOT/AST 152 U/L (15-37); SGPT/ALT 155 U/L (13-61)
[2023-12-15 08:05] LABS: BILIRUBIN,TOTAL 0.5 mg/dL (0.2-1); CREATININE 6.3 mg/dL (0.55-1.3); TOT PROT 5.1 g/dl (6.4-8.2)
[2023-12-15 08:07] LABS: ALK PHOS 213 U/L (45-117)
[2023-12-15 08:43] LABS: PHOSPHOROUS 9.1 mg/dL (2.5-4.9)
[2023-12-15 09:04] LABS: ANISOCYTOSIS 2+; MACROCYTOSIS 0
[2023-12-16 08:56] LABS: BASO % 0.5 % (0-2.0); EOS % 4.9 % (0-4.5); HEMOGLOBIN 9.3 GM/dL (10.7-15.3); LYMPH % 6.5 % (8-40); MCH 30.9 pg (25.7-33.7); MCHC 33.2 g/dl (32.0-36.0); MEAN CELL VOLUME 92.9 fl (80-96); MEAN PLT VOLUME 8.8 fl (7.5-11.1); MONO % 5.8 % (3.8-10.2); NEUT % 82.3 % (42.8-82.8); PLATELET COUNT 313 10^3/uL (134-434); RBC 3.01 M/mm3 (3.60-5.2); RDW 16.3 % (11.6-15.6); WHITE BLOOD COUNT 7.8 K/mm3 (4.0-10.0)
[2023-12-16 09:40] LABS: ALBUMIN 2.1 g/dl (3.4-5.0)
[2023-12-16 09:41] LABS: BLOOD UREA NITROGEN 63.2 mg/dL (7-18); CALCIUM 8.3 mg/dL (8.5-10.1)
[2023-12-16 09:42] LABS: MAGNESIUM 2.4 mg/dL (1.8-2.4)
[2023-12-16 09:44] LABS: BILIRUBIN,TOTAL 0.6 mg/dL (0.2-1); TOT PROT 5.3 g/dl (6.4-8.2)
[2023-12-16 09:45] LABS: CREATININE 4.2 mg/dL (0.55-1.3); PHOSPHOROUS 5.6 mg/dL (2.5-4.9)
[2023-12-17] MEDS: LEVOTHYROXINE NA 75 MCG TABLET (FP) NGT SCH (06:08)
[2023-12-17 08:16] LABS: BASO % 0.5 % (0-2.0); EOS % 4.4 % (0-4.5); HEMATOCRIT 27.7 % (32.4-45.2); LYMPH % 5.9 % (8-40); MCH 30.7 pg (25.7-33.7); MCHC 32.6 g/dl (32.0-36.0); MEAN CELL VOLUME 94.2 fl (80-96); MEAN PLT VOLUME 8.5 fl (7.5-11.1); MONO % 6.5 % (3.8-10.2); NEUT % 82.7 % (42.8-82.8); PLATELET COUNT 322 10^3/uL (134-434); RBC 2.94 M/mm3 (3.60-5.2); RDW 15.8 % (11.6-15.6); WHITE BLOOD COUNT 9.2 K/mm3 (4.0-10.0)
[2023-12-17 08:17] LABS: POTASSIUM 4.9 mmol/L (3.5-5.1)
[2023-12-17 08:20] LABS: ALBUMIN 2.1 g/dl (3.4-5.0); CALCIUM 8.4 mg/dL (8.5-10.1)
[2023-12-17 08:21] LABS: MAGNESIUM 2.4 mg/dL (1.8-2.4)
[2023-12-17 08:24] LABS: CREATININE 5.7 mg/dL (0.55-1.3)
[2023-12-17 08:25] LABS: BILIRUBIN,TOTAL 0.6 mg/dL (0.2-1); BLOOD UREA NITROGEN 91.1 mg/dL (7-18); TOT PROT 5.3 g/dl (6.4-8.2)
[2023-12-17 12:05] VITALS: RESP 16
[2023-12-17 14:06] VITALS: PULSE 86
[2023-12-17 14:17] VITALS: BP 121/66; TEMP 96
[2023-12-17] MEDS ORDERED: MORPHINE 100 MG/100 ML MG IVPB SCH (15:00)
[2023-12-17] MEDS: MORPHINE SULFATE/0.9% NACL/PF 100 MG/100 ML BAG IVPB SCH (15:36)
== END 2023-12-17 21:00 | disposition expired | DRG 130 ==
LOC: JER 02:22 → JERBED 04:35 → JICU 05:47 → J6S 12-05 16:58 → JICU 12-05 17:04
PROVIDERS: ADMIT Internal Medicine Pulmonary Disease; ATTEND Internal Medicine Pulmonary Disease
PROC: 5A1955Z Respiratory Ventilation, Greater than 96 Consecutive Hours (ICD-10-PCS; principal; 2023-12-04)
PROC: 02HV33Z Insertion of Infusion Device into Superior Vena Cava, Percutaneous Approach (ICD-10-PCS; 2023-12-04)
PROC: B548ZZA Ultrasonography of Superior Vena Cava, Guidance (ICD-10-PCS; 2023-12-04)
PROC: 5A1D70Z Performance of Urinary Filtration, Intermittent, Less than 6 Hours Per Day (ICD-10-PCS; 2023-12-05)
PROC: 4A10X4Z Monitoring of Central Nervous Electrical Activity, External Approach (ICD-10-PCS; 2023-12-14)
PROC: 5A1945Z Respiratory Ventilation, 24-96 Consecutive Hours (ICD-10-PCS; 2023-12-15)
PROC: 0BH17EZ Insertion of Endotracheal Airway into Trachea, Via Natural or Artificial Opening (ICD-10-PCS; 2023-12-15)
DX: J96.91 Respiratory failure, unspecified with hypoxia (principal); J69.0 Pneumonitis due to inhalation of food and vomit; I46.9 Cardiac arrest, cause unspecified; G93.1 Anoxic brain damage, not elsewhere classified; I12.0 Hypertensive chronic kidney disease with stage 5 chronic kidney disease or end stage renal disease; N18.6 End stage renal disease; I48.91 Unspecified atrial fibrillation; A04.72 Enterocolitis due to Clostridium difficile, not specified as recurrent; G25.3 Myoclonus; E11.22 Type 2 diabetes mellitus with diabetic chronic kidney disease; E87.20 Acidosis, unspecified; E87.5 Hyperkalemia; I16.0 Hypertensive urgency; J96.92 Respiratory failure, unspecified with hypercapnia; Z79.84 Long term (current) use of oral hypoglycemic drugs; E03.9 Hypothyroidism, unspecified; E78.5 Hyperlipidemia, unspecified; Z99.2 Dependence on renal dialysis; D64.9 Anemia, unspecified
CPT/HCPCS: 0241U-QW; 36415; 36600; 70450-TC; 71045-TC-FY; 80048; 80051; 80053; 82140; 82803; 82962; 83605; 83735; 83880; 84100; 84484; 85025; 85027; 86705; 86803; 87040; 87045; 87046; 87070; 87107; 87205; 87324; 87340; 87389; 87449; 93005; 93010; 93306-TC; 94002; 95816; 99285-25; J0131; J1644